=== PATIENT | female | born 1990 | race Asian ===

== ENCOUNTER 2016-08-08 18:03 | Emergency (ER) | payer OTHER ==
[~2016-08-08] VITALS: Ht 162.6 cm; Wt 68.0 kg
[~2016-08-08 18:03] MED LIST: IRON325 M1 PO; MONONESSA 35 MC1 TA1 PO; MOTRIN 600600 MG/TAB PO; PERCOCET 325 MG1 TA2 PO; PRENATAL1 TA1 PO
[2016-08-08 18:10] VITALS: TEMP 97.9
[2016-08-08 18:50] VITALS: BP 101/59; PULSE 79
== END 2016-08-08 18:50 | disposition home or self-care (01) ==
LOC: COL.ER 18:03
DX: T24.212A Burn of second degree of left thigh, initial encounter (principal); X10.0XXA Contact with hot drinks, initial encounter